=== PATIENT | male | born 1965 | race Caucasian/White ===

== ENCOUNTER 2024-01-07 10:10 | Outpatient (CLI) | payer OTHER, SELFPAY ==
--- NOTE | ~2024-01-07 | MR_ITS ---
EXAMINATION: MR knee LT wo con DATE: 01/07/2024 10:53 INDICATION: Acute tear of the medial meniscus presenting with left knee tightness and discomfort. TECHNIQUE: Magnetic resonance imaging (MRI) of the left knee was performed without intravenous contra st. Sequences included coronal PD-weighted FSE, coronal PD-weighted FS FSE, sagittal T2-weighted FSE , sagittal PD-weighted FS FSE and axial PD weighted fat saturated FSE. COMPARISON: None. FINDINGS: Medial compartment: There is medial extrusion of the medial meniscal body with full-thickness radial tear at the posterio r horn. Deep chondral ulceration with chondral surface and irregularity along the anterior to central weightbearing medial femoral condyle with minimal subarticular edema-like signal change along the an terior weightbearing medial femoral condyle. There is mild subarticular edema-like signal change andreina g the posterior margin of the medial tibial plateau which could be due to either otherwise occult ove rlying chondromalacia or altered weight/stress distribution resulting from the meniscal tear. Lateral compartment: Lateral meniscus is normal. Subtle chondral ulceration with deep fissuring without degenerative subch ondral changes along the medial margin of the anterior weightbearing lateral femoral condyle. Mild pa rtial-thickness cartilage loss with smooth chondral surface along the lateral margin of the posterior weightbearing lateral femoral condyle. Patellofemoral compartment: Deep chondral fissure with minimal underlying subarticular edema-like signal change extending from th e cephalad aspect of the patellar apical ridge inferiorly into the medial aspect of the lateral pablo lar facet. There is extensive partial thickness chondral ulceration at the trochlear groove and immed iately adjacent medial and lateral trochlea. Small focus of cortical irregularity and underlying donell a-like signal change at the inferior aspect of the medial trochlea. Ligaments and tendons: Anterior and posterior cruciate ligaments are normal. The medial collateral ligament and fibular marc ateral ligament complex are normal. The extensor mechanism is normal. The visualized medial and later al hamstring tendons as well as the iliotibial band are normal. Fluid: Small left knee joint effusion at the suprapatellar pouch. No loose osteochondral bodies identified. Osseous/other: Bone alignment is normal. No fracture or pathologic marrow replacing process. IMPRESSION: 1. Full-thickness radial tear at the posterior horn of the medial meniscus. 2. 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 Reviewed, dictated and finalized at location B. IMPRESSION: 1. Full-thickness radial tear at the posterior horn of the medial meniscus. 2. Mild tricompartmental osteoarthritis with regions of high-grade chondral mal acia the medial and patellofemoral compartments and significant smaller region of moderate grade chondromalacia in the lateral compartment.
== END 2024-01-07 10:11 | disposition home or self-care (01) ==
PROVIDERS: PCP Orthopaedic Surgery; Visit Provider Orthopaedic Surgery
DX: S83.242A Other tear of medial meniscus, current injury, left knee, initial encounter (principal); X58.XXXA Exposure to other specified factors, initial encounter; M17.12 Unilateral primary osteoarthritis, left knee
CPT/HCPCS: 73721